=== PATIENT | female | born 1995 | race Caucasian/White ===

== ENCOUNTER 2019-02-26 16:07 | Emergency (ER) | payer OTHER ==
[~2019-02-26] VITALS: Ht 157.5 cm; Wt 43.6 kg
[2019-02-26 16:20] VITALS: BP 120/65; TEMP 99.9
[2019-02-26 17:01] LABS: BASO % 0.3 % (0.0-2.0); EOS # 0.1 (0.0-0.7); EOS % 1.2 % (0-4.0); GRAN # 6.5 (1.4-6.5); GRAN % 64.7 % (42.2-75.2); HEMATOCRIT 42.2 % (37.0-47.0); HEMOGLOBIN 14.1 g/dl (12.5-16.0); LYMPH # 2.7 (1.2-3.4); LYMPH % 26.9 % (20.0-51.0); MEAN CELL VOLUME 91 fl (80.0-100.0); MEAN CORPUSCULAR HEMOGLOBIN 30 pg (27.0-31.0); MEAN CORPUSCULAR HGB CONC 33 g/dl (33.0-37.0); MEAN PLATELET VOLUME 10.8 fl (7.4-10.4); MONO # 0.7 (0.1-0.6); MONO % 6.6 % (1.7-9.3); PLATELET COUNT 294 K/mm3 (130-400); RED BLOOD COUNT 4.64 M/mm3 (4.10-5.30); REDCELL DISTRIBUTION WIDTH-CV 12.3 % (11.5-14.5)
[2019-02-26 17:10] LABS: ALBUMIN 4.7 gm/dL (3.5-5.0); BILIRUBIN,TOTAL 0.6 mg/dL (0.0-1.0); CALCIUM 9.5 mg/dL (8.4-10.2); CREATININE, serum 0.69 (0.52-1.25); POTASSIUM 3.8 mmol/L (3.4-5.0); TOTAL PROTEIN 8.5 gm/dL (6.4-8.2)
[2019-02-26 17:15] LABS: C-REACTIVE PROTEIN 0.5 mg/dL (0.0-0.9)
[2019-02-26 18:25] VITALS: PULSE 74
== END 2019-02-26 18:25 | disposition home or self-care (01) ==
LOC: COL.ER 16:07
PROVIDERS: Nurse Practitioner
DX: R52 Pain, unspecified (principal); Z88.0 Allergy status to penicillin; Z88.6 Allergy status to analgesic agent

== ENCOUNTER 2019-03-27 23:01 | Emergency (ER) | payer OTHER ==
[~2019-03-27] VITALS: Ht 157.5 cm; Wt 45.0 kg
[2019-03-27 23:15] VITALS: BP 109/66; TEMP 98.5
[2019-03-28] MEDS ORDERED: NORCO 325 MG-51 TAB PO (00:12)
[2019-03-28 00:21] VITALS: PULSE 80
[2019-03-28] MEDS ORDERED: DOXYCYCLINE 10100 MG PO (01:17)
== END 2019-03-28 01:19 | disposition home or self-care (01) ==
LOC: COL.ER 23:01
DX: A69.20 Lyme disease, unspecified (principal)

== ENCOUNTER 2019-09-25 16:41 | Emergency (ER) | payer OTHER ==
[~2019-09-25] VITALS: Ht 157.5 cm; Wt 44.5 kg
[~2019-09-25 16:41] MED LIST: DOXYCYCLINE 10100 MG PO; NORCO 325 MG-51 TAB PO
[2019-09-25 16:52] VITALS: TEMP 97.7
[2019-09-25 17:51] LABS: COLLECTION METHOD CLEAN CATCH
[2019-09-25 18:03] LABS: AMORPHOUS CRYSTAL Present /uL; MUCOUS Present /lpf; PH 7 (5-8); SQUAMOUS EPITHELIAL 0-2 /hpf; URINE APPEARANCE Hazy; URINE BACTERIA Rare /hpf; URINE BILIRUBIN Negative (NEGATIVE); URINE BLOOD Negative (NEGATIVE); URINE COLOR Yellow; URINE GLUCOSE Negative (NEGATIVE); URINE KETONE Negative (NEGATIVE); URINE LEUKOCYTE ESTERASE Negative (NEGATIVE); URINE NITRATE Negative (NEGATIVE); URINE PROTEIN(semi-quant) Negative (NEGATIVE); URINE RBC 0-2 /hpf; URINE UROBILINOGEN Negative (NEGATIVE)
[2019-09-25 18:07] LABS: BASO # 0.1 (0.0-0.2); BASO % 0.4 % (0.0-2.0); EOS # 0.2 (0.0-0.7); EOS % 1.6 % (0-4.0); GRAN # 7.6 (1.4-6.5); GRAN % 65.7 % (42.2-75.2); LYMPH # 3.2 (1.2-3.4); LYMPH % 27.8 % (20.0-51.0); MEAN CELL VOLUME 89 fl (80.0-100.0); MEAN CORPUSCULAR HEMOGLOBIN 30 pg (27.0-31.0); MEAN CORPUSCULAR HGB CONC 33 g/dl (33.0-37.0); MEAN PLATELET VOLUME 10.9 fl (7.4-10.4); MONO # 0.5 (0.1-0.6); MONO % 4.2 % (1.7-9.3); PLATELET COUNT 303 K/mm3 (130-400); REDCELL DISTRIBUTION WIDTH-CV 11.9 % (11.5-14.5)
[2019-09-25 18:08] LABS: ALANINE AMINOTRANSFERASE 13 U/L (9-52); ALBUMIN 4.7 gm/dL (3.5-5.0); ALKALINE PHOSPHATASE 76 U/L (50-136); ANION GAP 9 mmol/L (7-16); AST,SGOT 23 U/L (15-37); BILIRUBIN,TOTAL 0.5 mg/dL (0.0-1.0); BLOOD UREA NITROGEN 12 mg/dL (7-17); C-REACTIVE PROTEIN < 0.5 mg/dL (0.0-0.9); CARBON DIOXIDE 27 mmol/L (22-30); CHLORIDE 104 mmol/L (98-107); CREATININE, serum 0.58 (0.52-1.25); GLUCOSE 89 mg/dL (74-106); LIPASE 76 U/L (23-300); POTASSIUM 3.5 mmol/L (3.4-5.0); SODIUM 139 mmol/L (137-145); TOTAL PROTEIN 8.5 gm/dL (6.4-8.2)
[2019-09-25] MEDS ORDERED: NORCO 325 MG-51 TAB PO (19:48)
[2019-09-25 20:10] VITALS: BP 116/78; PULSE 78
== END 2019-09-25 20:15 | disposition home or self-care (01) ==
LOC: COL.ER 16:41
PROVIDERS: Nurse Practitioner
DX: R10.11 Right upper quadrant pain (principal); Z88.0 Allergy status to penicillin; Z88.6 Allergy status to analgesic agent
CPT/HCPCS: J1885; J2405; J7030; Q9967

== ENCOUNTER 2019-10-02 07:29 | Emergency (ER) | payer OTHER ==
[~2019-10-02] VITALS: Ht 157.5 cm; Wt 44.5 kg
[2019-10-02 07:42] VITALS: BP 95/50
[2019-10-02 09:22] LABS: COLLECTION METHOD CLEAN CATCH
[2019-10-02 09:29] LABS: PH 6 (5-8); SQUAMOUS EPITHELIAL None Seen /hpf; URINE APPEARANCE Clear; URINE BACTERIA None Seen /hpf; URINE BILIRUBIN Negative (NEGATIVE); URINE BLOOD Negative (NEGATIVE); URINE COLOR Straw; URINE GLUCOSE Negative (NEGATIVE); URINE KETONE Negative (NEGATIVE); URINE LEUKOCYTE ESTERASE Negative (NEGATIVE); URINE NITRATE Negative (NEGATIVE); URINE PROTEIN(semi-quant) Negative (NEGATIVE); URINE RBC None Seen /hpf; URINE UROBILINOGEN Negative (NEGATIVE)
[2019-10-02] MEDS ORDERED: TAMIFLU 75MG75 MG PO (09:53)
[2019-10-02 10:00] VITALS: PULSE 77; TEMP 97.2
== END 2019-10-02 10:00 | disposition home or self-care (01) ==
LOC: COL.ER 07:29
PROVIDERS: Physician Assistant
DX: J11.1 Influenza due to unidentified influenza virus with other respiratory manifestations (principal); Z90.49 Acquired absence of other specified parts of digestive tract